=== PATIENT | male | born 1965 | race Caucasian/White ===

== ENCOUNTER 2024-03-05 20:41 | Emergency (ER) | payer BC ==
[~2024-03-05 20:41] MED LIST: CEPHALEXIN500 M1 PO; FLOMAX PO; IBU800 M1 PO; MORGIDOX 1X100100 MG PO; RT ALBUTEROL I6.8 GM IH; SINGULAIR 110 MG/TAB PO
[2024-03-05 21:01] LABS: BASO # 0.03 K/mm3 (0.02-0.10); EOS # 0.25 K/mm3 (0.04-0.40); EOS % 3.4 % (0.0-4.0); HEMOGLOBIN 15.3 g/dL (13.5-18.0); LYMPH# 1.74 K/mm3 (1.50-4.00); MEAN CELL VOLUME 93 fl (78-100); MEAN CORPUSCULAR HEMOGLOBIN 31 pg (27-31); MEAN CORPUSCULAR HGB CONC 33 g/dL (33-37); MEAN PLATELET VOLUME 8.9 fl (7.4-10.4); MONO # 0.72 K/mm3 (0.20-0.80); NEU # 4.62 K/mm3 (1.40-6.50); PLATELET COUNT 205 K/mm3 (130-400); RED BLOOD COUNT 4.96 M/mm3 (4.20-5.60); RED CELL DISTRIBUTION WIDTH 12.8 % (11.5-14.5); WHITE BLOOD COUNT 7.4 K/mm3 (4.8-10.8)
[2024-03-05 21:09] LABS: ALBUMIN 4.1 g/dL (3.5-5.0)
[2024-03-05 21:10] LABS: CALCIUM 9.8 mg/dL (8.3-10.5)
[2024-03-05 21:11] LABS: TOTAL PROTEIN 6.7 g/dL (6.4-8.3)
[2024-03-05 21:13] LABS: TOTAL BILIRUBIN 0.5 mg/dL (0.2-1.2)
[2024-03-05 21:23] LABS: D-DIMER 0.73 mg/L FEU (0.15-0.50)
[2024-03-05] MEDS ORDERED: Iohexol 350 - 100 ML VIAL IV ONE (21:55)
[2024-03-05] MEDS ORDERED: Orphenadrine 60 MG/2ML AMP IV ONE (22:15)
[2024-03-05 22:30] LABS: URINE APPEARANCE CLEAR (CLEAR); URINE BILIRUBIN NEGATIVE (NEGATIVE); URINE BLOOD TRACE-INTACT (NEGATIVE); URINE COLOR YELLOW (YELLOW); URINE GLUCOSE NEGATIVE (NEGATIVE); URINE KETONE NEGATIVE (NEGATIVE); URINE LEUKOCYTE ESTERASE NEGATIVE (NEGATIVE); URINE NITRATE NEGATIVE (NEGATIVE); URINE PROTEIN(semi-quant) NEGATIVE (NEGATIVE); URINE WBC 0-1 /hpf (0-3)
[2024-03-05 22:31] LABS: URINE MUCUS PRESENT (NOT PRESENT)
[2024-03-05] MEDS ORDERED: Ketorolac 30 MG/ML VIAL IV ONE (22:45)
[2024-03-05] MEDS ORDERED: TIZANIDINE HYDRO4 MG PO (22:48)
[2024-03-05] MEDS ORDERED: VOLTAREN ARTHRI20 GM TP (22:48)
[2024-03-05 22:57] VITALS: BP 151/87
== END 2024-03-05 22:57 | disposition home or self-care (01) ==
LOC: ED 20:41
PROVIDERS: Family Medicine
DX: M54.6 Pain in thoracic spine (principal); R79.89 Other specified abnormal findings of blood chemistry; R06.02 Shortness of breath; Z98.1 Arthrodesis status
CPT/HCPCS: J1885; J2360; J7120; Q9967